=== PATIENT | female | born 1955 | race Caucasian/White ===

== ENCOUNTER 2024-01-12 09:56 | Outpatient (CLI) | payer MEDICARE, SELFPAY ==
--- NOTE | 2024-01-12 10:15 | MR_ITS ---
[address] [address] Phone:?[phone] Fax:?[phone] Referring Physician Information: Chirag Artis M.D. [id number] [facility] [address] Phone:?[phone] Fax:?[phone] Patient:Hemant Pink D.O.B:?1955 Sex:?Female Phone:?[phone] [facility] MRN:?[id number] Exam Date:?01/12/2024 EXAM: MRI of the LEFT SHOULDER, without contrast CLINICAL INFORMATION: Female, 68 years old, with left shoulder pain. INDICATION: Evaluate for rotator cuff tear. PRIOR SURGERY: None reported. PLAIN FILMS: None available. COMPARISONS: No prior MRIs available. TECHNICAL INFORMATION: Using a 1.5T MR scanner and a localizing surface coil: coronal obliques: PD, T2, STIR sagittal obliques: PD, T2 axials: PD, T2 SEDATION: None CONTRAST: None FINDINGS: Bones: Proximal humerus: No fracture or marrow edema/pathology. No humeral Hill-Sachs or reverse Hill-Sachs lesion/impaction or contusion. Glenoid: No fracture or marrow edema/pathology. No osseous Bankart lesion. Rotator cuff and muscles/tendons: Supraspinatus: Mild-moderate supraspinatus tendinopathy with a 6 x 6 mm area of intermediate grade partial-thickness anterior insertional footprint tearing (coronal STIR series 4 image 9 and sagittal T2 series 8 image 7). No full- thickness tear or muscle atrophy. Infraspinatus: No tendinopathy, tear or atrophy. Teres minor: No tendinopathy, tear or atrophy. Subscapularis: Mild tendinopathy of the superior distal subscapularis without tendon tear or muscle atrophy. Deltoid: No strain or atrophy. Coracoacromial arch: Acromion morphology: The acromion has type II morphology. No discrete subacromial osseous spur or os acromiale. Acromiohumeral space: The acromiohumeral space measures 5.3 mm at its narrowest point (osseous distance). Coracohumeral space: The coracohumeral space is within normal limits. Acromioclavicular joint: Joint: Mild AC joint arthropathy, without evidence of supraspinatus impingement. Ligaments: Coracoclavicular ligaments are intact. Bursae: Subacromial-subdeltoid: Mild subacromial-subdeltoid bursitis. Subcoracoid: No convincing subcoracoid bursal thickening/bursitis. Biceps tendon: The long head of the biceps tendon is present within the bicipital groove. The intra-articular and extra-articular segments are intact without tendinosis, tenosynovitis, or displacement. Glenohumeral joint: Effusion/cyst: Small glenohumeral joint effusion. Articular cartilage: Humeral head & glenoid: Minimal signal heterogeneity, surface irregularity, and thinning of the articular cartilage without full-thickness chondral loss or reactive osseous changes. Loose bodies: No discrete intra-articular body within the joint. Labrum:?No discrete labral tear or paralabral cyst identified on this non- arthrographic study. Inferior glenohumeral ligament/axillary pouch:?Intact. The axillary pouch is normal in thickness and signal. No evidence of adhesive capsulitis or capsular injury. IMPRESSION: 1. Mild-moderate supraspinatus tendinopathy with a 6 x 6 mm intermediate grade partial-thickness anterior insertional footprint tearing. 2. Mild subscapularis tendinopathy, without tear. 3. Mild narrowing of the acromiohumeral space with mild subacromial-subdeltoid bursitis. While there is mild AC joint arthropathy, there is no evidence of impingement at the AC joint. 4. No tendinopathy, displacement, or tear of the biceps long head tendon. 5. No full-thickness chondral defect or evidence of glenohumeral joint osteoarthritis. 6. No labral tear or paralabral cyst. BC Electronically signed on 01/12/2024 1:41:00 PM by Gil Champion M.D.
== END 2024-01-12 09:57 | disposition home or self-care (01) ==
LOC: MRI 09:58
PROVIDERS: PCP Nurse Practitioner Family; Visit Provider Orthopaedic Surgery
DX: M25.512 Pain in left shoulder (principal); M75.102 Unspecified rotator cuff tear or rupture of left shoulder, not specified as traumatic; M75.52 Bursitis of left shoulder
CPT/HCPCS: 73221

== ENCOUNTER 2024-03-16 11:30 | Outpatient (RCR) | payer MEDICARE, SELFPAY ==
--- NOTE | 2024-01-26 17:50 | PT.OPEX ---
PT [place] Outpatient Eval PT [facility] Outpatient Eval Start: 01/26/24 11:55 Freq: Status: Active Protocol: Document 01/26/24 11:55 JANIS (Rec: 01/26/24 17:44 JANIS [id number]) E-signed By Domingo Garcia PT Physical Therapy Outpatient Evaluation Insurance Information Insurance Name Medicare B,[facility] Medical Diagnosis Left shoulder bursitis Left shoulder rotator cuff tear at insertion Referring MD Artis Subjective Subjective Pt. comes to therapy today complaining of left shoulder pain and dysfunction. It has been hurting for about a year without known injury. She is right handed but uses her left for a lot of ADL's. She has a lot of trouble raising her arm over shoulder height without assist from the other arm. She has difficulty getting to sleep due to her pain as well. MRI reveals a partial tear of rotator cuff tendon along with bursitis/ tendonitis. PMH includes cervical fusion surgery in 2019. Her goal is to be able to return to normal use of left arm for every activities without problems. Pain Comments mild Date of Last Physician Visit 01/25/24 Current Work Status Retired Preferred Name Colleen Objective Other/Pertinent Objective Left shoulder AROM: mild loss of flexion and abduction with moderate loss of ER compared to right. PROM: pain and moderate limitation of 50 deg of left ER compared to 90 deg on right Mild left GHJ capsular restrictions noted pain and mild weakness with supraspinatus testing Muscle hypertonus/guarding left shoulder and upper arm. Functional Test Performed & Score SPADI: 66/130 = 50.8% Assessment Assessment/Impression Objectively, pt. demonstrates; forward shoulder and head posture; mild deficits with left shoulder flexion, abduction, and ER AROM; mild loss of left shoulder passive flexion and abduction with moderate loss of ER with pain; mild capsular restrictions left shoulder; mild scaption and abduction weakness with mild pain during isometric testing; hypertonus/guarding of left deltoid and cuff/upper back areas; and scapular weakness/deconditioning. She would benefit from skilled therapy working on progressive ROM and strengthening activities. Primary Functional Limitations Lifting, reaching with left arm; getting comfortable to sleep Plan of Care Rehabilitation Potential Excellent Physical Therapy Goals 1. Pt. will be indep. with HEP for self maintenance in 8 weeks. 2. Pt. will demonstrate improved left shoulder AROM to WNL with only mild pain in 12 weeks. 3. Pt. will be able to raise left arm overhead for ADL's without difficulty in 8 weeks. Coordination/Communication With Referral Source Treatment Plan/Direct Interventions Joint Mobilization,Manual Therapy,Self-Care/Home Management,Therapeutic Exercises Frequency/Duration Weekly to every other week for 8-12 weeks. Patient Will Be Discharged From Therapy Independent w/HEP, Independently Progressing Evaluation Billing Complexity Low Certification Information Initial Certification Date 01/26/24 Ending Certification Date 04/25/24 Provider Signature Required Yes Provider Signature Shows Agreement With POC & Medical Necessity Physician NPI Number Write NPI# Here Physician Comment/Change : Physician Signature & Date Requested Please Sign/Date Here
== END 2024-05-21 09:25 | disposition home or self-care (01) ==
PROVIDERS: PCP Nurse Practitioner Family; Visit Provider Orthopaedic Surgery
DX: M75.52 Bursitis of left shoulder (principal); Z51.89 Encounter for other specified aftercare
CPT/HCPCS: 97110; 97140; 97161